=== PATIENT | female | born 1970 | race Caucasian/White ===

== ENCOUNTER 2019-11-16 20:18 | Emergency (ER) | payer SELFPAY ==
[2019-11-16 21:44] LABS: Basophils % 0.9 % (0-1.3); Hematocrit 42.7 % (36.0-45.0); Lymphocytes % 37.1 % (15.3-44.8); MPV 8.7 fL (7.6-11.3)
[2019-11-16 21:47] LABS: Urine Blood TRACE (NEG); Urine Glucose 2+ (NEG); Urine Protein NEGATIVE (NEG); Urine Specific Gravity 1.015 (1.005-1.030)
[2019-11-16 23:39] LABS: Albumin 3.8 g/dL (3.4-5.0); Bilirubin Direct 0.1 mg/dL (0-0.2); Bilirubin Total 0.4 mg/dL (0.2-1.0); Protein, Total 8.2 g/dL (6.4-8.2)
[2019-11-17] MEDS ORDERED: INSULIN -REGULAR HUMAN 50 UNIT/0.5 ML ML ONE (00:25)
[2019-11-17] MEDS ORDERED: NA CHLORIDE 0.9% 1,000 ML ONE (00:26)
--- NOTE | 2019-11-17 02:13 | RAD REPORT ---
EXAM DESCRIPTION: CTAbdomen Pelvis W Contrast - 11/17/2019 1:18 am CLINICAL HISTORY: Abdominal pain. ABD PAIN COMPARISON: CT ABD PELVIS W CONTRAST dated 07/15/2013 TECHNIQUE: Biphasic CT imaging of the abdomen and pelvis was performed with 100 ml non-ionic IV cont rast. All CT scans are performed using dose optimization technique as appropriate and may include automated exposure control or mA/KV adjustment according to patient size. FINDINGS: The lung bases are clear. The liver, spleen, pancreas, adrenal glands and kidneys are within normal limits. No bowel obstruction, free air, free fluid or abscess. The appendix is normal. No evidence of signi ficant lymphadenopathy. No suspicious bony findings. Calcified uterine fibroid. IMPRESSION: No acute intra-abdominal or pelvic finding.
--- NOTE | 2019-11-17 02:19 | ER ---
Nurse's Notes [facility] Name: Chelsi Sen Age: 49 yrs Sex: Female : 1970 Arrival Date: 11/16/2019 Time: 20:32 Bed 2 Private MD: Diagnosis: Diabetes mellitus due to underlying condition with hyperglycemia;Generalized abdominal pain Presentation: 11/16 20:37 Chief complaint: Patient states: "I am having some abdominal pain. last year I had a jd3 similar problem. no nausea, vomiting, or diarrhea. it started on my left side of my stomach and has gone all over my stomach now.". Coronavirus screen: The patient has NOT traveled to [place] in the past 14 days. The patient has NOT had contact with known and/or suspected case of Coronavirus. Proceed with normal triage procedures. Ebola Screen: Patient negative for fever greater than or equal to 101.5 degrees Fahrenheit, and additional compatible Ebola Virus Disease symptoms. Initial Sepsis Screen: Does the patient meet any 2 criteria? No. Patient's initial sepsis screen is negative. Does the patient have a suspected source of infection? No. Patient's initial sepsis screen is negative. Risk Assessment: Do you want to hurt yourself or someone else? Patient reports no desire to harm self or others. 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 - Social history:: Smoking status: Patient/guardian denies using tobacco, the patient reports quitting approximately 1 years ago. Screenin:51 Abuse screen: Denies threats or abuse. Nutritional screening: No deficits noted. ea Tuberculosis screening: No symptoms or risk factors identified. Fall Risk IV access (20 points). Assessment: 21:50 General: Appears in no apparent distress. Behavior is calm, cooperative, appropriate ea for age. Pain: Complains of pain in umbilical area, right lower quadrant and left lower quadrant. Neuro: Level of Consciousness is awake, alert, obeys commands, Oriented to person, place, time. Respiratory: Airway is patent Respiratory effort is even, unlabored, Respiratory pattern is regular, symmetrical. GI: Abdomen is non-distended. Derm: Skin is dry, Skin is normal, Skin temperature is warm. 22:15 Reassessment: Patient and/or family updated on plan of care and expected duration. Pain ea level reassessed. Patient is alert, oriented x 3, equal unlabored respirations, skin warm/dry/pink. 23:14 Reassessment: Patient and/or family updated on plan of care and expected duration. Pain ea level reassessed. Patient is alert, oriented x 3, equal unlabored respirations, skin warm/dry/pink. 00:43 Reassessment: Patient and/or family updated on plan of care and expected duration. Pain ea level reassessed. Patient is alert, oriented x 3, equal unlabored respirations, skin warm/dry/pink. Pt taken to CT. 01:03 Reassessment: Patient and/or family updated on plan of care and expected duration. Pain ea level reassessed. Patient is alert, oriented x 3, equal unlabored respirations, skin warm/dry/pink. Pt returned from CT. 02:01 Reassessment: Patient and/or family updated on plan of care and expected duration. Pain ea level reassessed. Pt resting with eyes closed, respirations even and unlabored, Chest expansions even and symmetrical. Awaiting on CT results. 02:43 Reassessment: Patient and/or family updated on plan of care and expected duration. Pain ea level reassessed. Patient is alert, oriented x 3, equal unlabored respirations, skin warm/dry/pink. Discharge instruction given to patient and family, verbalized the understanding of instruction. Pt left ED ambulatory accompanied by family. Vital Signs: 11/16 20:41 BP 126 / 93; Pulse 94; Resp 18 S; Temp 98.3(TE); Pulse Ox 98% on R/A; Weight 81.65 kg jd3 (R); Height 5 ft. 4 in. (162.56 cm) (R); Pain 5/10; 21:52 BP 104 / 86; Pulse 74; Resp 18; Pulse Ox 99% on R/A; ea 23:14 BP 152 / 88; Pulse 73; Resp 19; Pulse Ox 98% ; ea 00:30 BP 135 / 79; Pulse 80; Resp 18; Pulse Ox 98% on R/A; ea 01:00 BP 139 / 91; Pulse 80; Resp 18; Pulse Ox 98% ; ea 02:00 BP 139 / 78; Pulse 75; Resp 18; Pulse Ox 99% ; ea 11/16 20:41 Body Mass Index 30.90 (81.65 kg, 162.56 cm) jd3 ED Course: 11/16 20:32 Patient arrived in ED. cl3 20:39 Triage completed. jd3 20:42 Arm band placed on. jd3 21:12 Sondra Gan, RN is Primary Nurse. ea 21:12 Princess Vasquez [facility]C [facility]. kb 21:12 Lewis Crawford MD is Attending Physician. kb 21:38 Inserted saline lock: 22 gauge in left antecubital area, using aseptic technique. Blood ea collected. 21:51 Patient has correct armband on for positive identification. Placed in gown. Bed in low ea position. Call light in reach. Side rails up X2. 23:40 Notified Nurse Practitioner and/or Physician Marine Electrician Apprentice of a critical lab result(s), bb Glucose of 414 Princess Vasquez EMBOSSING TOOLSETTER notified. 01:18 CT Abd/Pelvis - IV Contrast Only In Process Unspecified. EDMS 02:44 No provider procedures requiring assistance completed. IV discontinued, intact, ea bleeding controlled, No redness/swelling at site. Pressure dressing applied. Administered Medications: 00:30 Drug: NS 0.9% 1000 ml Route: IV; Rate: 1000 ml; Site: left antecubital; ea 02:48 Follow up: Response: No adverse reaction; IV Intake: 1000ml ea 00:30 Drug: Insulin Regular Human 5 units {Co-Signature: lw1 (Micha Lyon RN).} Route: ea IVP; Site: left antecubital; 02:40 Follow up: Response: No adverse reaction ea Intake: 02:48 IV: 1000ml; Total: 1000ml. ea Outcome: 02:19 Discharge ordered by . kb 02:49 Discharged to home ambulatory, with family. ea 02:49 Condition: stable 02:49 Discharge instructions given to patient, Instructed on discharge instructions, follow up and referral plans. the need for admit, Demonstrated understanding of instructions, follow-up care, medications, Prescriptions given X 1. 02:50 Patient left the ED. ea Signatures: Dispatcher [employer] Princess Randall, ANGELI GARIBAY-Alla Phillips, RN RN Sondra Perez RN RN Aidan Balderas RN RN jd3 Lewis, Charde cl3 Micha Lyon RN lw1
--- NOTE | 2019-11-17 02:20 | EDPHYS ---
Physician Documentation [facility] Name: Chelsi Sen Age: 49 yrs Sex: Female : 1970 Arrival Date: 11/16/2019 Time: 20:32 Bed 2 Private MD: ED Physician Lewis Crawford HPI: 11/16 22:40 This 49 yrs old Female presents to ER via Wheelchair with complaints of kb Abdominal Pain. 22:40 The patient presents with abdominal pain that is diffuse. Onset: The symptoms/episode kb began/occurred 3 day(s) ago. The symptoms do not radiate. Associated signs and symptoms: Pertinent positives: constipation, Pertinent negatives: nausea, vomiting, and diarrhea. The symptoms are described as intermittent. Modifying factors: The symptoms are alleviated by nothing, the symptoms are aggravated by nothing. Severity of pain: At its worst the pain was moderate in the emergency department the pain has improved. The patient has not experienced similar symptoms in the past. The patient has not recently seen a physician. Pt reports abd pain that has been intermittent for the last few days. Had similar pain a year ago. 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 - Social history:: Smoking status: Patient/guardian denies using tobacco, the patient reports quitting approximately 1 years ago. ROS: 22:37 Constitutional: Negative for fever, chills, and weight loss, ENT: Negative for injury, kb pain, and discharge, Neck: Negative for injury, pain, and swelling, Cardiovascular: Negative for chest pain, palpitations, and edema, Respiratory: Negative for shortness of breath, cough, wheezing, and pleuritic chest pain, Back: Negative for injury and pain, : Negative for injury, bleeding, discharge, and swelling, MS/Extremity: Negative for injury and deformity, Skin: Negative for injury, rash, and discoloration, Neuro: Negative for headache, weakness, numbness, tingling, and seizure. 22:37 Abdomen/GI: Positive for abdominal pain, constipation, Negative for nausea, vomiting, and diarrhea. Exam: 22:37 Constitutional: This is a well developed, well nourished patient who is awake, alert, kb and in no acute distress. Head/Face: Normocephalic, atraumatic. ENT: Nares patent. No nasal discharge, no septal abnormalities noted. Tympanic membranes are normal and external auditory canals are clear. Oropharynx with no redness, swelling, or masses, exudates, or evidence of obstruction, uvula midline. Mucous membranes moist. Neck: Trachea midline, no thyromegaly or masses palpated, and no cervical lymphadenopathy. Supple, full range of motion without nuchal rigidity, or vertebral point tenderness. No Meningismus. Chest/axilla: Normal chest wall appearance and motion. Nontender with no deformity. No lesions are appreciated. Cardiovascular: Regular rate and rhythm with a normal S1 and S2. No gallops, murmurs, or rubs. Normal PMI, no JVD. No pulse deficits. Respiratory: Lungs have equal breath sounds bilaterally, clear to auscultation and percussion. No rales, rhonchi or wheezes noted. No increased work of breathing, no retractions or nasal flaring. Back: No spinal tenderness. No costovertebral tenderness. Full range of motion. Skin: Warm, dry with normal turgor. Normal color with no rashes, no lesions, and no evidence of cellulitis. MS/ Extremity: Pulses equal, no cyanosis. Neurovascular intact. Full, normal range of motion. Neuro: Awake and alert, GCS 15, oriented to person, place, time, and situation. Cranial nerves II-XII grossly intact. Motor strength 5/5 in all extremities. Sensory grossly intact. Cerebellar exam normal. Normal gait. 22:37 Abdomen/GI: Inspection: abdomen appears normal, Bowel sounds: normal, in all quadrants, Palpation: soft, in all quadrants, moderate abdominal tenderness, in the abdomen diffusely. Vital Signs: 20:41 BP 126 / 93; Pulse 94; Resp 18 S; Temp 98.3(TE); Pulse Ox 98% on R/A; Weight 81.65 kg jd3 (R); Height 5 ft. 4 in. (162.56 cm) (R); Pain 5/10; 21:52 BP 104 / 86; Pulse 74; Resp 18; Pulse Ox 99% on R/A; ea 23:14 BP 152 / 88; Pulse 73; Resp 19; Pulse Ox 98% ; ea 00:30 BP 135 / 79; Pulse 80; Resp 18; Pulse Ox 98% on R/A; ea 01:00 BP 139 / 91; Pulse 80; Resp 18; Pulse Ox 98% ; ea 02:00 BP 139 / 78; Pulse 75; Resp 18; Pulse Ox 99% ; ea 11/16 20:41 Body Mass Index 30.90 (81.65 kg, 162.56 cm) jd3 MDM: 11/16 21:12 Patient medically screened. kb 22:38 Data reviewed: vital signs, nurses notes. Data interpreted: Pulse oximetry: on room air kb is 99 %. Interpretation: normal. 02:18 Counseling: I had a detailed discussion with the patient and/or guardian regarding: the kb historical points, exam findings, and any diagnostic results supporting the discharge/admit diagnosis, lab results, radiology results, the need for outpatient follow up, a family practitioner, to return to the emergency department if symptoms worsen or persist or if there are any questions or concerns that arise at home. 11/16 21:02 Order name: Basic Metabolic Panel; Complete Time: 23:47 tw4 11/16 21:02 Order name: CBC with Diff; Complete Time: 21:46 tw4 11/16 21:02 Order name: Creatinine for Radiology; Complete Time: 22:43 tw4 11/16 21:02 Order name: Hepatic Function; Complete Time: 23:47 tw4 11/16 21:02 Order name: Lipase; Complete Time: 23:47 tw4 11/16 21:46 Order name: Urine Dipstick--Ancillary (enter results); Complete Time: 21:48 bb 11/16 21:02 Order name: IV Saline Lock; Complete Time: 21:38 tw4 11/16 21:02 Order name: Labs collected and sent; Complete Time: 21:38 tw4 11/16 23:47 Order name: CT Abd/Pelvis - IV Contrast Only; Complete Time: 02:16 kb 00:18 Order name: Hemoglobin A1c kb 00:50 Order name: Hemoglobin A1c; Complete Time: 01:54 EDMS 01:17 Order name: Glucose, Ancillary Testing; Complete Time: 01:18 EDMS Administered Medications: 00:30 Drug: NS 0.9% 1000 ml Route: IV; Rate: 1000 ml; Site: left antecubital; ea 02:48 Follow up: Response: No adverse reaction; IV Intake: 1000ml 00:30 Drug: Insulin Regular Human 5 units {Co-Signature: lw1 (Micha Lyon RN).} Route: ea IVP; Site: left antecubital; 02:40 Follow up: Response: No adverse reaction ea Disposition: 11/17 02:13 Co-signature as Attending Physician, Lewis Crawford MD I agree with the assessment and tw4 plan of care. Disposition: 11/17/19 02:19 Discharged to Home. Impression: Diabetes mellitus due to underlying condition with hyperglycemia, Generalized abdominal pain. - Condition is Stable. - Discharge Instructions: Abdominal Pain, Adult, [id number], Type 2 Diabetes Mellitus, Diagnosis, Adult, [id number], Type 2 Diabetes Mellitus, Self Care, Adult, [id number]. - Prescriptions for Metformin 500 mg Oral Tablet - take 1 tablet by ORAL route once daily for 7 days Then take 1 tablet with morning meals AND evening meals; 21 tablet. - Medication Reconciliation Form, Thank You Letter, Antibiotic Education, Prescription Opioid Use form. - Follow up: Emergency Department; When: As needed; Reason: Worsening of condition. Follow up: Private Physician; When: 2 - 3 days; Reason: Recheck today's complaints, Continuance of care, Re-evaluation by your physician. Signatures: Dispatcher [employer] [facility] Princess Vasquez, [place]-[employer] FARM MANAGEMENT PROFESSOR-Sondra Law RN RN ea Davies, Jonathon, RN RN jd3 Wadley, Terrence, MD MD tw4 Micha Lyon RN lw1 Corrections: (The following items were deleted from the chart) 02:50 02:19 11/17/2019 02:19 Discharged to Home. Impression: Diabetes mellitus due to ea underlying condition with hyperglycemia; Generalized abdominal pain. Condition is Stable. Forms are Medication Reconciliation Form, Thank You Letter, Antibiotic Education, Prescription Opioid Use. Follow up: Emergency Department; When: As needed; Reason: Worsening of condition. Follow up: Private Physician; When: 2 - 3 days; Reason: Recheck today's complaints, Continuance of care, Re-evaluation by your physician. kb
[2019-11-17 03:15] VITALS: TEMP 98.3
[2019-11-17 03:24] VITALS: BP 139/78; O2SAT 99
== END 2019-11-17 02:50 | disposition home or self-care (01) ==
LOC: ER 20:18
DX: E11.65 Type 2 diabetes mellitus with hyperglycemia (principal); I10 Essential (primary) hypertension
CPT/HCPCS: 36415; 74177; 80048; 80076; 81003; 82947; 83036; 83690; 85025; 96374; 99284; J7030; Q9967